=== PATIENT | male | born 1980 ===

== ENCOUNTER 2022-12-06 13:48 | Emergency (ER) | payer OTHER, SELFPAY ==
--- NOTE | ~2022-12-06 | XR_ITS ---
EXAMINATION: XR HAND, LEFT CLINICAL INFORMATION: Laceration third digit. COMPARISON: None available. TECHNIQUE: PA, lateral, and oblique views of the left hand. FINDINGS: There is a slight laceration along the radial aspect of distal phalanx third digit. No underlying bony or joint abnormality seen. Rest of the digits and left hand is unremarkable. XR/XR hand LT 2V IMPRESSION: Soft tissue laceration without fracture distal phalanx third digit. No bony abnormality or dislocation seen.
[2022-12-06 13:51] VITALS: BP 123/87; PULSE 92; RESP 18; TEMP 36.6; O2SAT 95; BMI 34.5
--- NOTE | 2022-12-06 13:51 | ED_ITS ---
HPI - Wound/Laceration General Chief Complaint: Wound/Laceration Stated Complaint: l middle finger laceration Time Seen by Provider: 12/06/22 14:33 Source: patient Mode of arrival: ambulatory Limitations: no limitations History of Present Illness HPI narrative: Patient is a 42-year-old right-hand dominant male with history of T2 dm presenting to the emergency department with laceration to left 3rd finger prior to arrival. States that he was chopping onions with a kitchen knife and accidentally cut his finger. He is unsure of his most recent tetanus vaccination. He denies any numbness or tingling to his finger. Onset (ago): hour(s) Extremity Location: left: hand Place: home Patient tetanus UTD: No Context: accidental Associated symptoms: pain Treatments prior to arrival: bandage Related Data Allergies Allergy/AdvReac Type Severity Reaction Status Date / Time No Known Allergies Allergy Verified 12/06/22 13:58 Review of Systems 2 Review of Systems: As per HPI Yes all other systems are reviewed and are negative Constitutional: Constitutional: Reports as per HPI [facility] Social History Social History Advance Directives: No Advance Directives Information Provided: No Physical Exam 2 Vital Signs: Vital Signs: Last Vital Signs Temp 97.8 F 12/06/22 13:51 Pulse 92 12/06/22 13:51 Resp 18 12/06/22 13:51 BP 123/87 12/06/22 13:51 Pulse Ox 95 12/06/22 13:51 O2 Del Method Room Air 12/06/22 13:51 BMI result Body Mass Index 34.5 Vital signs have been reviewed and appear to be correct. Blood pressure normal. Heart rate normal. Respiratory rate normal. Temperature normal. Oxygen saturation normal. Const: General: cooperative, healthy appearing and no acute distress O rientation/consciousness: oriented to person, oriented to place, oriented to time and patient oriented x3 Limitations: no limitations HEENT: Head: Yes normocephalic and Yes atraumatic Ears: external ears normal General nose exam: Normal external nose present Face and sinus: Yes face symmetric Mouth: oropharynx normal and moist mucous membranes Throat: Yes uvula midline Eyes: Pupils: Equal, round and reactive pupils present Neck: Neck: Yes normal visual inspection and Yes supple Resp: Effort & Inspection: normal respiratory effort and able to speak in complete sentences Auscultation: clear to auscultation bilaterally Cardio: Rate: regular rate Rhythm: regular rhythm Heart sounds: S1 normal heart sound present and S2 normal heart sound present GI: Palpation (GI): Soft to palpation and nontender Auscultation: n ormoactive bowel sounds : General: Yes no CVA tenderness Back/Spine/Pelvis: Back: no CVA tenderness Skin: General skin exam: elasticity normal and turgor normal Neuro: General: oriented to person, oriented to place, oriented to time, patient oriented x3, moves all extremities, no focal motor deficits and CN's II- XI intact bilaterally Cranial nerves: Yes Equal, round and reactive pupils present Cognition (Neuro): normal cognition Extrem: General: Yes full ROM, Yes no pedal edema and Yes no calf tenderness Hand/finger images: 1. laceration through edge of nail, wrapping around radial side of finger onto palmar surface 2. site of injury Psych: Mental Status: mental status grossly normal Affect: normal affect Thought process: Normal thought process present Course Course Course Narrative: This is a rapid medical exam. Deferred additional HPI, ROS, PE to primary provider. 42 yo with history of DM, right hand dominant male here with complaints of laceration to 3rd finger left hand from a knife which occurred while chopping onions. Tetanus shot UTD Lac to left hand 3rd digit along medial aspect to the nailbed. Will obtain x-ray, will need wound repair VSS Medications Administered Discontinued Medications Generic Name Dose Route Start Last Admin Trade Name Freq PRN Reason Stop Dose Admin Diphtheria/Tetanus/Acell Pertussis 0.5 ml 12/06/22 15:04 12/06/22 15:17 Diphth,Pertus(Acell),Tet Adult 0.5 Ml Syringe IM 12/06/22 15:05 0.5 ml .ONCE ONE Administration Lidocaine HCl 10 ml 12/06/22 15:04 12/06/22 16:24 Lidocaine Hcl 1 % Mpf 5 Ml Vial INFILTRATI 12/06/22 15:05 10 ml ONCE ONE Administration Medical Decision Making Medical Decision Making [facility] Narrative: Patient is a 42-year-old right-hand dominant male with history of T2DM presenting to the emergency department with laceration to left 3rd finger prior to arrival. On exam patient is awake, A+Ox3, VS WNL, afebrile, normal neurological exam without focal deficits, physical exam findings as above. Given reported symptoms and physical exam findings, initial differential includes laceration, closed nail bed injury, fracture. X-ray notable for no acute fracture. My interpretation is in agreement with the radiologist's interpretation. Tdap updated at today's visit. Hand soaked in Betadine and saline and cleansed extensively. Laceration repaired as per procedure note with 1 suture through nail. Instructed patient to have sutures removed in 10-14 days. Instructed patient to keep dressing in place and dry for the next 24 hours, then change dressing daily and assess for signs of infection and return if this occurs. All return precautions discussed at bedside. Patient verbalized understanding of and agreement with plan. Differential Diagnosis Differential Diagnoses: The differential diagnosis associated with the presentation includes As per MDM. Independent Interpretation I performed an independent interpretation of an: Plain X-Ray Interpretation: No fracture bony abnormality to left 3rd finger Radiology Impression Discussion of test interpretation with radiology: I have reviewed the radiologist's reading. Radiologist Impression: XR/XR hand LT 2V IMPRESSION: Soft tissue laceration without fracture distal phalanx third digit. No bony abnormality or dislocation seen. External Record Review External record reviewed: Inpatient record, Office record and Outpatient record Prescription Management I considered prescription management with: Pain Medication Procedures Laceration Laceration 1: Site: hand Side (If applicable): left Size (cm): 2 Description: linear Depth: simple, single layer Local Anesthetic: lidocaine 1% (digital block) Amount of anesthesia used (mL): 8 Pre-repair: wound explored, irrigated extensively and deep structures intact Skin layer closed with: nylon Size (cm): 5-0 Number of sutures: 6 Discharge Plan Discharge Clinical Impression: Laceration of finger of left hand with damage to nail Qualifiers: Encounter type: initial encounter Finger: middle finger Foreign body presence: without foreign body Qualified Code(s): S61.313A - Laceration without foreign body of left middle finger with damage to nail, initial encounter Patient Disposition: Home, Self-Care Instructions: Care For Your Stitches (DC), Finger Laceration (ED) Additional Instructions: You have been evaluated in the emergency department today for a laceration to your finger. Your laceration was repaired in the emergency department with sutures. Please keep the area surrounding the laceration clean and dry and keep dressing in place for the next 24 hours. After that please change the dressing and assess the wound daily for signs of infection. Do not submerge your hand in water until fully healed. (No dishes, swimming, hot tubs) Avoid any outdoor water (lakes, streams, etc). Keeping your hand elevated at rest will help to decrease pain and swelling. You can take 650 mg Tylenol or 600 mg ibuprofen every 6 hours as needed for pain. If necessary, you can alternate these medications every 3 hours, for example take ibuprofen at noon, then Tylenol at 3, then ibuprofen at 6, etc. You should have the sutures removed in 10-14 days. If you develop fever, redness, swelling at the site of your laceration, redness streaking up your hand, or thick yellow drainage please come back to the ER for a wound check. Stand Alone Forms: Work/School Release
--- OUTSIDE RECORDS SUMMARY | 2022-12-06 14:44 | XMS_ITS | Continuity of Care Document ---
Author Name Unknown Organization [facility] Address [address] [place] [address]- Care Team Providers Care Salvage Worker Name Role Phone Samantha WREN, Sameera Campoverde Primary Care Physici an Encounter [facility] [place](s): 08/07/22 - 09/06/22 [facility]/[place] [address]- Attending Physician: Tayla Raza Admitting Physician: AdmtrTayla Referring Physician: AdmtrTayla Allergies, Adverse Reactions, Alerts No Known Allergies Immunizations Given and Recorded Vaccine Date Status Refusal Reason tetanus/diphtheria/pertussis, acel(Tdap) 12/26/20 Given tetanus-diphtheria toxoids (Td) 1 03/18/11 Given influenza virus vaccine, inactivated 2 03/18/11 Gi katelyn Twinrix Preservative-Free (oldterm) 01/30/09 Given 1Admin Note: VIS given 2Admin Note: VIS given Medications Alcohol Pads See Instructions, # 100 each, Refills 3, Tot. Refills 3, Maintenance, T2DM No insulin (E11.9) Use as directed once daily, 08/07/22 15:49:00 EDT, Compound, 174.5, cm, 08/07/22 15:15:00 EDT, Height, 104.54, kg, 08/07/22 15:15:00 EDT, Dry Weight Start Date: 08/07/22 Status: Ordered atorvastatin 20 mg oral tablet 1 tablet = 20 mg, By Mouth, Daily, dose increase, # 90 tablet, 3 Refills, Maintenance, 08/29/22 17:43:00 EDT, Tablet, [facility], Partial fill upon patient request if the prescription is for a schedule II opioid drug., 174.5, cm, 0... Start Date: 08/29/22 Status: Ordered cetirizine 10 mg oral tablet 1 tablet = 10 mg, By Mouth, Daily, PRN allergies, # 90 tablet, 3 Refills, Maintenance, 08/07/22 15:42:00 EDT, Tablet, [facility], Partial fill upon patient request if the prescription is for a schedule II opioid drug., 174.5, cm, 0... Start Date: 08/07/22 Status: Ordered famotidine 40 mg oral tablet 1 tablet = 40 mg, By Mouth, Daily at bedtime, PRN Dyspepsia, citizen [place], # 90 tablet, 1 Refills, Maintenance, 08/07/22 15:40:00 EDT, [facility], Partial fill upon patient request if the prescription is for a schedule II opioid drug.,... Start Date: 08/07/22 Status: Ordered Freestyle Lite Lancets See Instructions, # 100 each, Refills 3, Tot. Refills 3, Maintenance, use as directed for Type 2 Diabetes Mellitus, E11.9, testing once daily, 08/07/22 15:49:00 EDT, Compound, 174.5, cm, 08/07/22 15:15:00 EDT, Height, 104.54, kg, 08/07/22 15:15:00 ED... Start Date: 08/07/22 Stop Date: 12/05/22 Status: Ordered Freestyle Lite Monitor See Instructions, # 1 each, Maintenance, Type 2 DM (E11.9), 08/06/21 9:11:00 EDT, Supply, 174.5, cm, 08/01/21 9:37:00 EDT, Height Start Date: 08/06/21 Status: Ordered Freestyle Lite Test Strips See Instructions, # 100 each, Refills 3, Tot. Refills 3, Maintenance, use as directed for Type 2 Diabetes Mellitus, E11.9, testing once daily, 08/07/22 15:49:00 EDT, Compound, 174.5, cm, 08/07/22 15:15:00 EDT, Height, 104.54, kg, 08/07/22 15:15:00 ED... Start Date: 08/07/22 Stop Date: 12/05/22 Status: Ordered metFORMIN 500 mg oral tablet 1 tablet = 500 mg, By Mouth, Daily, with evening meal for type 2 diabetes, # 90 tablet, 1 Refills, Maintenance, 04/14/22 14:10:00 EST, Tablet, [facility], Partial fill upon patient request if the prescription is for a schedule II... Start Date: 04/14/22 Status: Ordered sildenafil 50 mg oral tablet 1 tablet = 50 mg, By Mouth, Daily, 1 hour before sexual activity citizen of [place], # 10 tablet, 3 Refills, Maintenance, 08/07/22 15:57:00 EDT, Tablet, [facility], Partial fill upon patientrequest if the prescription is for a schedule II o... Start Date: 08/07/22 Status: Ordered Problem List Condition Confirmation Course Effective Dates Status Health St atus Informant Binge eating disorder Confirmed Active Central obesity Confirmed Active Disorder of right rotator cuff Confirmed Active History of vertigo 1 Confirmed Active Hyperlipemia Confirmed Active Obese class I Confirmed Active Panic disorder without agoraphobia Confirmed Active Traumatic partial tear of right biceps tendon Confirmed Active Steatosis of liver Confirmed Active Type 2 diabetes mellitus Confirmed Active 1work up in-patient feb 2014, dx: TIA vs complex migraine. Social History Social History Type Response Smoking Status Cigars or pipes but not daily within last 30 days entered on: 07/03/21 Sex Patient Care team information Care Team Personnel Name: Samantha WREN, Sameera Campoverde Position: [facility] PCO Associate Professional Member Role: PCP Address: Address: [address] [place] [address]- Care Team Related Persons Name: ILIANA ECKERT Address: home [place]KNOWN [id number]
--- OUTSIDE RECORDS SUMMARY | 2022-12-06 14:44 | XMS_ITS | Continuity of Care Document ---
Author Name Unknown Organization [facility] Address [address] [place] [address]- Care Team Providers Care Decal Maker Name Role Phone Samantha WREN, Sameera Campoverde Primary Care Physici an [place] [facility] [facility] [place] - 09/28/22 [facility]/[place] [address]- [place] Allergies, Adverse Reactions, Alerts No Known Allergies [...] 3 Refills, Maintenance, 08/29/22 17:43:00 EDT, Tablet, [facility], Partial fill upon patient request if the prescription is for a schedule II opioid drug., 174.5, cm, 0... Start Date: 08/29/22 Status: Ordered cetirizine 10 mg oral tablet 1 tablet = 10 mg, By Mouth, Daily, PRN allergies, # 90 tablet, 3 Refills, Maintenance, 08/07/22 15:42:00 EDT, Tablet, [facility], Partial fill upon patient request if the prescription is for a schedule II opioid drug., 174.5, cm, 0... Start Date: 08/07/22 Status: Ordered famotidine 40 mg oral tablet 1 tablet = 40 mg, By Mouth, Daily at bedtime, PRN Dyspepsia, iraqi, # 90 tablet, 1 Refills, Maintenance, 08/07/22 15:40:00 EDT, [facility], Partial fill upon patient request if [...] 1 Refills, Maintenance, 04/14/22 14:10:00 EST, Tablet, [facility], Partial fill upon patient request if the prescription is for a schedule II... Start Date: 04/14/22 Status: Ordered sildenafil 50 mg oral tablet 1 tablet = 50 mg, By Mouth, Daily, 1 hour before sexual activity iraqi, # 10 tablet, 3 Refills, Maintenance, 08/07/22 15:57:00 EDT, Tablet, [facility], Partial fill upon patientrequest if the prescription [...] Personnel Name: Samantha WREN, Sameera Campoverde Position: [facility] PCO Associate Professional Member Role: PCP Address: Address: [address] [place] [id number]- Care Team Related Persons Name: ILIANA ECKERT Address: home [place]KNOWN [id number]
--- OUTSIDE RECORDS SUMMARY | 2022-12-06 14:44 | XMS_ITS | Continuity of Care Document ---
Author Name Unknown Organization [facility] Address [address] [place] [address]- Care Team Providers Care Chart Writer Name Role Phone Samantha WREN, Sameera Campoverde Primary Care Physici an [place] [facility] [place] 03/18/22 - 04/17/22 [facility]/[place] [address]- [place] Allergies, Adverse Reactions, Alerts No Known [...] insulin (E11.9) Use as directed once daily, 08/06/21 9:11:00 EDT, Compound, 174.5, cm, 08/01/21 9:37:00 EDT, Height Start Date: 08/06/21 Status: Ordered atorvastatin 10 mg oral tablet 1 tablet = 10 mg, By Mouth, Daily, # 90 tablet, 0 Refills, Maintenance, 04/11/22 15:41:00 EST, [facility], Partial fill upon patient request if the prescription is for a schedule II opioid drug., 174.5, cm, 03/06/22 11:05:00 EST, H... Start Date: 04/11/22 Status: Ordered cetirizine 10 mg oral tablet 1 tablet = 10 mg, By Mouth, Daily, PRN allergies, # 30 tablet, 11 Refills, Maintenance, 12/26/20 16:01:00 EDT, Tablet, [facility], Partial fill upon patient request if the prescription is for a schedule II opioid drug., 174.5, cm,... Start Date: 12/26/20 Status: Ordered dextromethorphan-guaifenesin 10 mg-100 mg/10 mL oral liquid 5 mL, By Mouth, Every 4 hours, PRN as needed for cough, not to exceed 6 doses/day, # 30 mL, 0 Refills, Maintenance, 03/17/22 16:32:00 EST, Liquid, [facility], Partial fill upon patient request if the prescription is for a schedule... Start Date: 03/17/22 Status: Ordered escitalopram 10 mg oral tablet 1 tablet = 10 mg, By Mouth, Daily, take 1/2 pill for 2 weeks, then increase to one pill daily, # 30tablet, 5 Refills, Maintenance, 10/10/21 10:43:00 EDT, Tablet, [facility], Partial fill upon patient request if the prescription is... Start Date: 10/10/21 Status: Ordered famotidine 40 mg oral tablet 1 tablet = 40 mg, By Mouth, 2 times a day, PRN Dyspepsia, greenlandic, # 20 tablet, 1 Refills, Maintenance, 02/22/20 11:25:00 EST, [facility], Partial fill upon patient request if theprescription is for a schedule II opioid drug., 174... Start Date: 02/22/20 Status: Ordered famotidine 40 mg oral tablet 1 tablet = 40 mg, By Mouth, Daily at bedtime, PRN Dyspepsia, greenlandic, # 20 tablet, 1 Refills, Maintenance, 03/17/22 16:27:00 EST, [facility], Partial fill upon patient request if the prescription is for a schedule II opioid drug.,... Start Date: 03/17/22 Status: Ordered Freestyle Lite Lancets See Instructions, # 100 each, Refills 3, Tot. Refills 3, Maintenance, use as directed for Type 2 Diabetes Mellitus, E11.9, testing once daily, 08/06/21 9:11:00 EDT, Compound, 174.5, cm, 08/01/21 9:37:00 EDT, Height Start Date: 08/06/21 Stop Date: 12/04/21 Status: Ordered Freestyle Lite Monitor See Instructions, # 1 each, Maintenance, Type 2 DM (E11.9), 08/06/21 9:11:00 EDT, Supply, 174.5, cm, 08/01/21 9:37:00 EDT, Height Start Date: 08/06/21 Status: Ordered Freestyle Lite Test Strips See Instructions, # 100 each, Refills 3, Tot. Refills 3, Maintenance, use as directed for Type 2 Diabetes Mellitus, E11.9, testing once daily, 08/06/21 9:11:00 EDT, Compound, 174.5, cm, 08/01/21 9:37:00 EDT, Height Start Date: 08/06/21 Stop Date: 12/04/21 Status: Ordered hydrOXYzine hydrochloride 10 mg oral tablet See Instructions, PRN for anxiety, 1-2 tablet By Mouth 4 times a day PRN anxiety/panic attack., # 60 tablet, 1 Refills, Maintenance, 10/10/21 11:08:00 EDT, Tablet, [facility], Partial fill upon patient request if the prescription i... Start Date: 10/10/21 Status: Ordered ipratropium nasal 21 mcg/inh spray 2 sprays, Nares, Both, 2 times a day, PRN Congestion, # 1 each, 0 Refills, Maintenance, 03/17/22 16:25:00 EST, [facility], Partial fill upon patient request if the prescription isfor a schedule II opioid drug., 2 sprays Nares, Bot... Start Date: 03/17/22 Status: Ordered Lubricant Eye Drops ophthalmic solution 1 drops, Eyes, Both, 2 times a day, PRN for dry eyes, # 30 mL, 11 Refills, Maintenance, 12/26/20 16:07:00 EDT, Solution, [facility], Partial fill upon patient request if the prescription is for a schedule II opioid drug., 1 drops E... Start Date: 12/26/20 Status: Ordered metFORMIN 500 mg oral tablet 1 tablet = 500 mg, By Mouth, Daily, with evening meal for type 2 diabetes, # 90 tablet, 1 Refills, Maintenance, 04/14/22 14:10:00 EST, Tablet, [facility], Partial fill upon patient request if the prescription is for a schedule II... Start Date: 04/14/22 Status: Ordered Problem List Condition Confirmation Course [...] Personnel Name: Samantha WREN, Sameera Campoverde Position: [facility] PCO Associate Professional Member Role: PCP Address: Address: [address] [place] [address] Care Team Related Persons Name: ILIANA ECKERT Address: home [place] [phone]
--- OUTSIDE RECORDS SUMMARY | 2022-12-06 14:44 | XMS_ITS | Continuity of Care Document ---
Author Name Unknown Organization [facility] Address [address] [place], [place] [id number]- Care Team Providers Care Biochemist Name Role Phone Samantha WREN, Sameera Campoverde Primary Care Physici an Encounter [facility] [place] Date(s): 10/01/21 - 10/31/21 [facility]/[place] [address]- [place] Allergies, Adverse Reactions, Alerts No Known [...] EDT, Height Start Date: 08/06/21 Status: Ordered cetirizine 10 mg oral tablet 1 tablet = 10 mg, By Mouth, Daily, PRN allergies, # 30 tablet, 11 Refills, Maintenance, 12/26/20 16:01:00 EDT, Tablet, [facility], Partial fill upon patient request if the prescription is for a schedule II opioid drug., 174.5, cm,... Start Date: 12/26/20 Status: Ordered escitalopram 10 mg oral tablet 1 tablet = 10 mg, By Mouth, Daily, take 1/2 pill for 2 weeks, then increase to one pill daily, # 30tablet, 5 Refills, Maintenance, 10/10/21 10:43:00 EDT, Tablet, [facility], Partial fill upon patient request if the prescription is... Start Date: 10/10/21 Status: Ordered famotidine 40 mg oral tablet 1 tablet = 40 mg, By Mouth, 2 times a day, PRN Dyspepsia, arabic, # 20 tablet, 1 Refills, Maintenance, 02/22/20 11:25:00 EST, [facility], Partial fill upon patient request if theprescription is for a schedule II opioid drug., 174... Start Date: 02/22/20 Status: Ordered Freestyle Lite Lancets See Instructions, [...] 1 Refills, Maintenance, 10/10/21 11:08:00 EDT, Tablet, [facility], Partial fill upon patient request if the prescription i... Start Date: 10/10/21 Status: Ordered Lubricant Eye Drops ophthalmic solution 1 drops, Eyes, Both, 2 times a day, PRN for dry eyes, # 30 mL, 11 Refills, Maintenance, 12/26/20 16:07:00 EDT, Solution, [facility], Partial fill upon patient request if the prescription is for a schedule II opioid drug., 1 drops E... Start Date: 12/26/20 Status: Ordered metFORMIN 500 mg oral tablet 1 tablet = 500 mg, By Mouth, Daily, with evening meal for type 2 diabetes, # 90 tablet, 1 Refills, Maintenance, 10/29/21 13:27:00 EDT, Tablet, [facility], Partial fill upon patient request if the prescription is for a schedule II... Start Date: 10/29/21 Status: Ordered Problem List Condition Effective Dates Status Health Status Inform ant Binge eating disorder(Confirmed) Active Central obesity(Confirmed) Active Disorder of right rotator cuff(Confirmed) Active History of vertigo(Confirmed) 1 Active Hyperlipemia(Confirmed) Active Obese class I(Confirmed) Active Panic disorder without agoraphobia(Confirmed) Active Traumatic partial tear of ri ght biceps tendon(Confirmed) Active Steatosis of liver(Confirmed) Active Type 2 diabetes mellitus(Confirmed) Active 1work up in-patient feb 2014, dx: TIA vs complex migraine. Social History Social History Type Response Smoking Status Cigars or pipes but not daily within last 30 days entered on: 07/03/21 Sex Care Team Personnel Name: Samantha WREN, Sameera Campoverde Address: [address] [place] [address]
--- OUTSIDE RECORDS SUMMARY | 2022-12-06 14:44 | XMS_ITS | Continuity of Care Document ---
Author Name Unknown Organization [facility] Address [address] [place], [place] [id number]- Care Team Providers Care Injection Operator Name Role Phone Samantha WREN, Sameera Campoverde Primary Care Physici an Encounter [facility] Date(s): 11/07/21 - 12/07/21 [facility] [address]- [place] Allergies, Adverse Reactions, Alerts No Known [...] 11 Refills, Maintenance, 12/26/20 16:01:00 EDT, Tablet, [facility], Partial fill upon patient request if the prescription is for a schedule II opioid drug., 174.5, cm,... Start Date: 12/26/20 Status: Ordered escitalopram 10 mg oral tablet 1 tablet = 10 mg, By Mouth, Daily, take 1/2 pill for 2 weeks, then increase to one pill daily, # 30tablet, 5 Refills, Maintenance, 10/10/21 10:43:00 EDT, Tablet, [facility], Partial fill upon patient request if the prescription is... Start Date: 10/10/21 Status: Ordered famotidine 40 mg oral tablet 1 tablet = 40 mg, By Mouth, 2 times a day, PRN Dyspepsia, polish, # 20 tablet, 1 Refills, Maintenance, 02/22/20 11:25:00 EST, [facility], Partial fill upon patient request if theprescription [...] 1 Refills, Maintenance, 10/10/21 11:08:00 EDT, Tablet, [facility], Partial fill upon patient request if the prescription i... Start Date: 10/10/21 Status: Ordered Lubricant Eye Drops ophthalmic solution 1 drops, Eyes, Both, 2 times a day, PRN for dry eyes, # 30 mL, 11 Refills, Maintenance, 12/26/20 16:07:00 EDT, Solution, [facility], Partial fill upon patient request if the prescription is for a schedule II opioid drug., 1 drops E... Start Date: 12/26/20 Status: Ordered metFORMIN 500 mg oral tablet 1 tablet = 500 mg, By Mouth, Daily, with evening meal for type 2 diabetes, # 90 tablet, 1 Refills, Maintenance, 10/29/21 13:27:00 EDT, Tablet, [facility], Partial fill upon patient request if the prescription is for a schedule II... Start Date: 10/29/21 Status: Ordered Problem List Condition Confirmation Course [...] on: 07/03/21 Sex Patient Care team information Personnel Name: Samantha WREN, Sameera Campoverde Address: Address: [address] [place] [address]
--- OUTSIDE RECORDS SUMMARY | 2022-12-06 14:44 | XMS_ITS | Continuity of Care Document ---
Author Name Unknown Organization [facility] Address [address] [place] [address]- Care Team Providers Care Rolling Machine Operator Automatic Name Role Phone Codi WREN, Misa Cleary Primary Care Physician Encounter [facility] Date(s): 03/24/19 - 04/03/19 [facility] [place] [address] [place] [address]- [facility] Attending Physician: Tayla Raza Admitting Physician: Tayla Raza Referring Physician: Tayla Raza Allergies, Adverse Reactions, Alerts No Known Medication Allergies Substance Reaction Severity Status NKA Active Immunizations Given and Recorded Vaccine Date Status Refusal Reason tetanus-diphtheria toxoids (Td) 1 03/18/11 Given influenza virus vaccine, inactivated 2 03/18/11 Gi katelyn 1Admin Note: VIS given 2Admin Note: VIS given Problem List Condition Effective Dates Status Health Status Inform ant Binge eating disorder(Confirmed) Active Central obesity(Confirmed) Active Disorder of right rotator cuff(Confirmed) Active History of vertigo(Confirmed) 1 Active Traumatic partial tear of ri ght biceps tendon(Confirmed) Active Steatosis of liver(Confirmed) Active 1work up in-patient feb 2014, dx: TIA vs complex migraine. Social History Social History Type Response Smoking Status Former smoker; Tobac co user in household: No entered on: 09/03/17 Sex
--- OUTSIDE RECORDS SUMMARY | 2022-12-06 14:44 | XMS_ITS | Continuity of Care Document ---
Author Name Unknown Organization [facility] Address [address] [place] [address]- Care Team Providers Care Optician Manager Name Role Phone Misa Kincaid NP Primary Care Physician Encounter [facility] Date(s): 04/11/20 - 05/11/20 [facility]/[address] [address]- Attending Physician: Tayla Raza Admitting Physician: AdmtrTayla Referring Physician: Admtr, ArJaja Allergies, Adverse Reactions, Alerts No Known Medication Allergies Substance Reaction Severity Status NKA Active Immunizations Given and Recorded Vaccine Date Status Refusal Reason tetanus-diphtheria toxoids (Td) 1 03/18/11 Given influenza virus vaccine, inactivated 2 03/18/11 Gi katelyn 1Admin Note: VIS given 2Admin Note: VIS given Medications diclofenac 1% topical gel 1 application, Topically, 4 times a day, PRN Pain , Moderate, # 100 Gm, 0 Refills, Maintenance, 12/05/19 11:20:00 EDT, Gel, [facility], 174.5, cm, 12/05/19 10:29:00 EDT, Height Start Date: 12/05/19 Status: Ordered famotidine 40 mg oral tablet 1 tablet = 40 mg, By Mouth, 2 times a day, PRN Dyspepsia, sinhala, # 20 tablet, 1 Refills, Maintenance, 02/22/20 11:25:00 EST, [facility], Partial fill upon patient request if theprescription is for a schedule II opioid drug., 174... Start Date: 02/22/20 Status: Ordered ibuprofen 400 mg oral tablet 400 mg, 1, tablet, By Mouth, Every 4 hours, PRN, # 60 tablet, Refills 0, Tot. Refills 0, Maintenance, for pain, 12/02/19 11:42:00 EDT, Route to Pharmacy Electronically, [facility], 174.5, cm, 03/24/19 16:27:00 EST, Height Start Date: 12/02/19 Status: Ordered lidocaine 4% topical solution See Instructions, as needed for pain in L shoulder, # 1 each, 0 Refills, Maintenance, 12/02/19 11:43:00 EDT, [facility], as needed for pain in L shoulder, 174.5, cm, 03/24/19 16:27:00 EST, Height Start Date: 12/02/19 Status: Ordered Problem List Condition Effective Dates [...]
--- OUTSIDE RECORDS SUMMARY | 2022-12-06 14:45 | XMS_ITS | Continuity of Care Document ---
Author Name Unknown Organization [facility] Address Unknown Care Team Providers Care Provider Network Analyst Name Role Phone Samantha WREN, Sameera Campoverde Primary Care Physici an Encounter [facility] [id number] Date(s): 01/21/21 - 02/20/21 [facility] Allergies, Adverse Reactions, Alerts No Known Medication Allergies Substance Reaction Severity Status NKA Active Immunizations Given and Recorded Vaccine Date Status Refusal Reason tetanus/diphtheria/pertussis, acel(Tdap) 12/26/20 Given tetanus-diphtheria toxoids (Td) 1 03/18/11 Given influenza virus vaccine, inactivated 2 03/18/11 Gi katelyn 1Admin Note: VIS given 2Admin Note: VIS given Medications cetirizine 10 mg oral tablet 1 tablet = 10 mg, By Mouth, Daily, PRN allergies, # 30 tablet, 11 Refills, Maintenance, 12/26/20 16:01:00 EDT, Tablet, [facility], Partial fill upon patient request if the prescription is for a schedule II opioid drug., 174.5, cm,... Start Date: 12/26/20 Status: Ordered famotidine 40 mg oral tablet 1 tablet = 40 mg, By Mouth, 2 times a day, PRN Dyspepsia, tamazight, # 20 tablet, 1 Refills, Maintenance, 02/22/20 11:25:00 EST, [facility], Partial fill upon patient request if theprescription is for a schedule II opioid drug., 174... Start Date: 02/22/20 Status: Ordered Lubricant Eye Drops ophthalmic solution 1 drops, Eyes, Both, 2 times a day, PRN for dry eyes, # 30 mL, 11 Refills, Maintenance, 12/26/20 16:07:00 EDT, Solution, [facility], Partial fill upon patient request if the prescription is for a schedule II opioid drug., 1 drops E... Start Date: 12/26/20 Status: Ordered Problem List Condition Effective Dates Status Health Status Inform ant Binge eating disorder(Confirmed) Active Central obesity(Confirmed) Active Disorder of right rotator cuff(Confirmed) Active History of vertigo(Confirmed) 1 Active Obese class II(Confirmed) Active Traumatic partial tear of ri ght biceps tendon(Confirmed) Active Steatosis of liver(Confirmed) Active 1work up in-patient feb 2014, dx: TIA vs complex migraine. Social History Social History Type Response Smoking Status Never (less than 100 in lifetime) entered on: 12/26/20 Sex
--- OUTSIDE RECORDS SUMMARY | 2022-12-06 14:45 | XMS_ITS | Continuity of Care Document ---
Author Name Unknown Organization [facility] Address [address] [place] [address]- Care Team Providers Care Corporate Security Manager Name Role Phone Misa Kincaid NP Primary Care Physician Encounter [facility] Date(s): 02/22/20 - 03/23/20 [facility]/[address] [address]- Attending Physician: Tayla Raza Admitting Physician: AdmTayla argueta Referring Physician: Admtr, ArJaja Allergies, Adverse Reactions, [...] 0 Refills, Maintenance, 12/05/19 11:20:00 EDT, Gel, [facility], 174.5, cm, 12/05/19 10:29:00 EDT, Height Start Date: 12/05/19 Status: Ordered famotidine 40 mg oral tablet 1 tablet = 40 mg, By Mouth, 2 times a day, PRN Dyspepsia, chinese, # 20 tablet, 1 Refills, Maintenance, 02/22/20 11:25:00 EST, [facility], Partial fill upon patient request if theprescription is for a schedule II opioid drug., 174... Start Date: 02/22/20 Status: Ordered ibuprofen 400 mg oral tablet 400 mg, 1, tablet, By Mouth, Every 4 hours, PRN, # 60 tablet, Refills 0, Tot. Refills 0, Maintenance, for pain, 12/02/19 11:42:00 EDT, Route to Pharmacy Electronically, [facility], 174.5, cm, 03/24/19 16:27:00 EST, Height Start Date: 12/02/19 Status: Ordered lidocaine 4% topical solution See Instructions, as needed for pain in L shoulder, # 1 each, 0 Refills, Maintenance, 12/02/19 11:43:00 EDT, [facility], as needed for pain in L shoulder, [...]
--- OUTSIDE RECORDS SUMMARY | 2022-12-06 14:45 | XMS_ITS | Continuity of Care Document ---
Author Name Unknown Organization [facility] Address [address] [place] [id number]- Care Team Providers Care Conveyor Feeder Offbearer Name Role Phone Samantha WREN, Sameera Campoverde Primary Care Physici an Encounter [facility] Date(s): 10/02/21 - 11/01/21 [facility] [address]- [place] Allergies, Adverse Reactions, Alerts No Known [...] 11 Refills, Maintenance, 12/26/20 16:01:00 EDT, Tablet, [facility], Partial fill upon patient request if the prescription is for a schedule II opioid drug., 174.5, cm,... Start Date: 12/26/20 Status: Ordered escitalopram 10 mg oral tablet 1 tablet = 10 mg, By Mouth, Daily, take 1/2 pill for 2 weeks, then increase to one pill daily, # 30tablet, 5 Refills, Maintenance, 10/10/21 10:43:00 EDT, Tablet, [facility], Partial fill upon patient request if the prescription is... Start Date: 10/10/21 Status: Ordered famotidine 40 mg oral tablet 1 tablet = 40 mg, By Mouth, 2 times a day, PRN Dyspepsia, albanian, # 20 tablet, 1 Refills, Maintenance, 02/22/20 11:25:00 EST, [facility], Partial fill upon patient request if theprescription [...] 1 Refills, Maintenance, 10/10/21 11:08:00 EDT, Tablet, [facility], Partial fill upon patient request if the prescription i... Start Date: 10/10/21 Status: Ordered Lubricant Eye Drops ophthalmic solution 1 drops, Eyes, Both, 2 times a day, PRN for dry eyes, # 30 mL, 11 Refills, Maintenance, 12/26/20 16:07:00 EDT, Solution, [facility], Partial fill upon patient request if the prescription is for a schedule II opioid drug., 1 drops E... Start Date: 12/26/20 Status: Ordered metFORMIN 500 mg oral tablet 1 tablet = 500 mg, By Mouth, Daily, with evening meal for type 2 diabetes, # 90 tablet, 1 Refills, Maintenance, 10/29/21 13:27:00 EDT, Tablet, [facility], Partial fill upon patient request if the [...] Personnel Name: Samantha WREN, Sameera Campoverde Address: [address] [place] [address]
--- OUTSIDE RECORDS SUMMARY | 2022-12-06 14:45 | XMS_ITS | Continuity of Care Document ---
Author Name Unknown Organization [facility] Address [address] [place], [place] [address]- Care Team Providers Care Hand Reamer Name Role Phone Samantha WREN, Sameera Campoverde Primary Care Physici an Encounter [facility] Date(s): 09/24/21 - 10/24/21 [facility] [address]- [place] Allergies, Adverse Reactions, Alerts No Known [...] 11 Refills, Maintenance, 12/26/20 16:01:00 EDT, Tablet, [facility], Partial fill upon patient request if the prescription is for a schedule II opioid drug., 174.5, cm,... Start Date: 12/26/20 Status: Ordered escitalopram 10 mg oral tablet 1 tablet = 10 mg, By Mouth, Daily, take 1/2 pill for 2 weeks, then increase to one pill daily, # 30tablet, 5 Refills, Maintenance, 10/10/21 10:43:00 EDT, Tablet, [facility], Partial fill upon patient request if the prescription is... Start Date: 10/10/21 Status: Ordered famotidine 40 mg oral tablet 1 tablet = 40 mg, By Mouth, 2 times a day, PRN Dyspepsia, divehi, # 20 tablet, 1 Refills, Maintenance, 02/22/20 11:25:00 EST, [facility], Partial fill upon patient request if [...] 1 Refills, Maintenance, 10/10/21 11:08:00 EDT, Tablet, [facility], Partial fill upon patient request if the prescription i... Start Date: 10/10/21 Status: Ordered Lubricant Eye Drops ophthalmic solution 1 drops, Eyes, Both, 2 times a day, PRN for dry eyes, # 30 mL, 11 Refills, Maintenance, 12/26/20 16:07:00 EDT, Solution, [facility], Partial fill upon patient request if the prescription is for a schedule II opioid drug., 1 drops E... Start Date: 12/26/20 Status: Ordered metFORMIN 500 mg oral tablet 1 tablet = 500 mg, By Mouth, Daily, with evening meal for type 2 diabetes, # 90 tablet, 1 Refills, Maintenance, 08/01/21 10:50:00 EDT, Tablet, [facility], Partial fill upon patient request if the prescription is for a schedule II... Start Date: 08/01/21 Status: Ordered Problem List Condition Effective Dates [...] Personnel Name: Samantha WREN, Sameera Campoverde Address: [address] [place] [address]
--- OUTSIDE RECORDS SUMMARY | 2022-12-06 14:45 | XMS_ITS | Continuity of Care Document ---
Author Name Unknown Organization [facility] Address Unknown Care Team Providers Care General Medical Practitioner Name Role Phone Samantha WREN, Sameera Campoverde Primary Care Physici an [id number] Date(s): 07/09/21 - 08/08/21 [facility] Allergies, Adverse Reactions, Alerts No Known Allergies [...] 11 Refills, Maintenance, 12/26/20 16:01:00 EDT, Tablet, [facility], Partial fill upon patient request if the prescription is for a schedule II opioid drug., 174.5, cm,... Start Date: 12/26/20 Status: Ordered famotidine 40 mg oral tablet 1 tablet = 40 mg, By Mouth, 2 times a day, PRN Dyspepsia, malay, # 20 tablet, 1 Refills, Maintenance, 02/22/20 11:25:00 EST, [facility], Partial fill upon patient request if theprescription [...] attack., # 60 tablet, 1 Refills, Maintenance, 07/03/21 18:00:00 EDT, Tablet, [facility], Partial fill upon patient request if the prescription i... Start Date: 07/03/21 Status: Ordered Lubricant Eye Drops ophthalmic solution 1 drops, Eyes, Both, 2 times a day, PRN for dry eyes, # 30 mL, 11 Refills, Maintenance, 12/26/20 16:07:00 EDT, Solution, [facility], Partial fill upon patient request if the prescription is for a schedule II opioid drug., 1 drops E... Start Date: 12/26/20 Status: Ordered metFORMIN 500 mg oral tablet 1 tablet = 500 mg, By Mouth, Daily, with evening meal for type 2 diabetes, # 90 tablet, 1 Refills, Maintenance, 08/01/21 10:50:00 EDT, Tablet, [facility], Partial fill upon patient request if [...]
--- OUTSIDE RECORDS SUMMARY | 2022-12-06 14:45 | XMS_ITS | Continuity of Care Document ---
Author Name Unknown Organization [facility] Address Unknown Care Team Providers Care Railcar Switchman Name Role Phone Samantha WREN, Sameera Camopverde Primary Care Physici an [id number] Date(s): 01/11/21 - 02/10/21 [facility] Attending Physician: Tayla Raza Admitting Physician: [...] 11 Refills, Maintenance, 12/26/20 16:01:00 EDT, Tablet, [facility], Partial fill upon patient request if the prescription is for a schedule II opioid drug., 174.5, cm,... Start Date: 12/26/20 Status: Ordered famotidine 40 mg oral tablet 1 tablet = 40 mg, By Mouth, 2 times a day, PRN Dyspepsia, trinidadian, # 20 tablet, 1 Refills, Maintenance, 02/22/20 11:25:00 EST, [facility], Partial fill upon patient request if theprescription is for a schedule II opioid drug., 174... Start Date: 02/22/20 Status: Ordered Lubricant Eye Drops ophthalmic solution 1 drops, Eyes, Both, 2 times a day, PRN for dry eyes, # 30 mL, 11 Refills, Maintenance, 12/26/20 16:07:00 EDT, Ursula, [facility], Partial fill upon patient request if [...]
--- OUTSIDE RECORDS SUMMARY | 2022-12-06 14:45 | XMS_ITS | Continuity of Care Document ---
Author Name Unknown Organization [facility] Address [address] [place] [address]- Care Team Providers Care Gluten Settling Tender Name Role Phone Samantha WREN, Sameera Campoverde Primary Care Physici an Encounter [facility] [place] Date(s): 03/17/22 - 04/16/22 [facility]/[place] [address]- [place] Allergies, Adverse Reactions, Alerts No Known [...] tablet, 0 Refills, Maintenance, 04/11/22 15:41:00 EST, [facility], Partial fill upon patient request if the prescription is for a schedule II opioid drug., 174.5, cm, 03/06/22 11:05:00 EST, H... Start Date: 04/11/22 Status: Ordered cetirizine 10 mg oral tablet 1 tablet = 10 mg, By Mouth, Daily, PRN allergies, # 30 tablet, 11 Refills, Maintenance, 12/26/20 16:01:00 EDT, Tablet, [facility], Partial fill upon patient request if the prescription is for a schedule II opioid drug., 174.5, cm,... Start Date: 12/26/20 Status: Ordered dextromethorphan-guaifenesin 10 mg-100 mg/10 mL oral liquid 5 mL, By Mouth, Every 4 hours, PRN as needed for cough, not to exceed 6 doses/day, # 30 mL, 0 Refills, Maintenance, 03/17/22 16:32:00 EST, Liquid, [facility], Partial fill upon patient request if the prescription is for a schedule... Start Date: 03/17/22 Status: Ordered escitalopram 10 mg oral tablet 1 tablet = 10 mg, By Mouth, Daily, take 1/2 pill for 2 weeks, then increase to one pill daily, # 30tablet, 5 Refills, Maintenance, 10/10/21 10:43:00 EDT, Tablet, [facility], Partial fill upon patient request if the prescription is... Start Date: 10/10/21 Status: Ordered famotidine 40 mg oral tablet 1 tablet = 40 mg, By Mouth, 2 times a day, PRN Dyspepsia, khmer, # 20 tablet, 1 Refills, Maintenance, 02/22/20 11:25:00 EST, [facility], Partial fill upon patient request if theprescription is for a schedule II opioid drug., 174... Start Date: 02/22/20 Status: Ordered famotidine 40 mg oral tablet 1 tablet = 40 mg, By Mouth, Daily at bedtime, PRN Dyspepsia, khmer, # 20 tablet, 1 Refills, Maintenance, 03/17/22 16:27:00 EST, [facility], Partial fill upon patient request if [...] 1 Refills, Maintenance, 10/10/21 11:08:00 EDT, Tablet, [facility], Partial fill upon patient request if the prescription i... Start Date: 10/10/21 Status: Ordered ipratropium nasal 21 mcg/inh spray 2 sprays, Nares, Both, 2 times a day, PRN Congestion, # 1 each, 0 Refills, Maintenance, 03/17/22 16:25:00 EST, [facility], Partial fill upon patient request if the prescription isfor a schedule II opioid drug., 2 sprays Nares, Bot... Start Date: 03/17/22 Status: Ordered Lubricant Eye Drops ophthalmic solution 1 drops, Eyes, Both, 2 times a day, PRN for dry eyes, # 30 mL, 11 Refills, Maintenance, 12/26/20 16:07:00 EDT, Solution, [facility], Partial fill upon patient request if the prescription is for a schedule II opioid drug., 1 drops E... Start Date: 12/26/20 Status: Ordered metFORMIN 500 mg oral tablet 1 tablet = 500 mg, By Mouth, Daily, with evening meal for type 2 diabetes, # 90 tablet, 1 Refills, Maintenance, 04/14/22 14:10:00 EST, Tablet, [facility], Partial fill upon patient request if [...] Personnel Name: Samantha WREN, Sameera Campoverde Position: [facility] PCO Associate Professional Member Role: PCP Address: Address: [address] [place] [address] Care Team Related Persons Name: ILIANA ECKERT Address: home UNKNOWN [id number]
--- OUTSIDE RECORDS SUMMARY | 2022-12-06 14:45 | XMS_ITS | Continuity of Care Document ---
Author Name Unknown Organization [facility] Address [address] [place] [address]- Care Team Providers Care Export Packer Name Role Phone Codi WREN, Misa Cleary Primary Care Physician Encounter [facility] Date(s): 01/11/20 - 02/10/20 [facility]/[address] [address]- Attending Physician: Tayla Raza Admitting Physician: Tayla Raza Referring Physician: AdmtrTayla Allergies, Adverse Reactions, Alerts No Known Medication [...] 0 Refills, Maintenance, 12/05/19 11:20:00 EDT, Gel, [facility], 174.5, cm, 12/05/19 10:29:00 EDT, Height Start Date: 12/05/19 Status: Ordered ibuprofen 400 mg oral tablet 400 mg, 1, tablet, By Mouth, Every 4 hours, PRN, # 60 tablet, Refills 0, Tot. Refills 0, Maintenance, for pain, 12/02/19 11:42:00 EDT, Route to Pharmacy Electronically, [facility], 174.5, cm, 03/24/19 16:27:00 EST, Height Start Date: 12/02/19 Status: Ordered lidocaine 4% topical solution See Instructions, as needed for pain in L shoulder, # 1 each, 0 Refills, Maintenance, 12/02/19 11:43:00 EDT, [facility] [place], as needed for pain in L shoulder, [...]
--- OUTSIDE RECORDS SUMMARY | 2022-12-06 14:45 | XMS_ITS | Continuity of Care Document ---
Author Name Unknown Organization [facility] Address [address] [place] [address]- Care Team Providers Care Consulting Practice Director Name Role Phone Samantha WREN, Sameera Campoverde Primary Care Physici an Encounter [facility] [place] Date(s): 08/29/22 - 09/28/22 [facility] [address]- [place] Allergies, Adverse Reactions, Alerts No Known [...] 3 Refills, Maintenance, 08/29/22 17:43:00 EDT, Tablet, [facility], Partial fill upon patient request if the prescription is for a schedule II opioid drug., 174.5, cm, 0... Start Date: 08/29/22 Status: Ordered cetirizine 10 mg oral tablet 1 tablet = 10 mg, By Mouth, Daily, PRN allergies, # 90 tablet, 3 Refills, Maintenance, 08/07/22 15:42:00 EDT, Tablet, [facility], Partial fill upon patient request if the prescription is for a schedule II opioid drug., 174.5, cm, 0... Start Date: 08/07/22 Status: Ordered famotidine 40 mg oral tablet 1 tablet = 40 mg, By Mouth, Daily at bedtime, PRN Dyspepsia, guinean, # 90 tablet, 1 Refills, Maintenance, 08/07/22 15:40:00 EDT, [facility], Partial fill upon patient request if [...] 1 Refills, Maintenance, 04/14/22 14:10:00 EST, Tablet, [facility], Partial fill upon patient request if the prescription is for a schedule II... Start Date: 04/14/22 Status: Ordered sildenafil 50 mg oral tablet 1 tablet = 50 mg, By Mouth, Daily, 1 hour before sexual activity guinean, # 10 tablet, 3 Refills, Maintenance, 08/07/22 15:57:00 EDT, Tablet, [facility], Partial fill upon patientrequest if the [...] Personnel Name: Samantha WREN, Sameera Campoverde Position: [facility] PCO Associate Professional Member Role: PCP Address: Address: [address] [place] [id number]- Care Team Related Persons Name: ILIANA ECKERT Address: home UNKNOWN [id number]
--- OUTSIDE RECORDS SUMMARY | 2022-12-06 14:45 | XMS_ITS | Continuity of Care Document ---
Author Name Unknown Organization [facility] Address Unknown Care Team Providers Care Instructor Product Inspection Name Role Phone Samantha WREN, Sameera Campovrede Primary Care Physici an Encounter [facility] [place] Date(s): 06/03/21 - 07/03/21 [facility] Allergies, Adverse Reactions, Alerts No Known Allergies [...] 11 Refills, Maintenance, 12/26/20 16:01:00 EDT, Tablet, [facility], Partial fill upon patient request if the prescription is for a schedule II opioid drug., 174.5, cm,... Start Date: 12/26/20 Status: Ordered famotidine 40 mg oral tablet 1 tablet = 40 mg, By Mouth, 2 times a day, PRN Dyspepsia, indian, # 20 tablet, 1 Refills, Maintenance, 02/22/20 11:25:00 EST, [facility], Partial fill upon patient request if theprescription is for a schedule II opioid drug., 174... Start Date: 02/22/20 Status: Ordered hydrOXYzine hydrochloride 10 mg oral tablet See Instructions, PRN for anxiety, 1-2 tablet By Mouth 4 times a day PRN anxiety/panic attack., # 60 tablet, 1 Refills, Maintenance, 07/03/21 18:00:00 EDT, Tablet, [facility], Partial fill upon patient request if the prescription i... Start Date: 07/03/21 Status: Ordered Lubricant Eye Drops ophthalmic solution 1 drops, Eyes, Both, 2 times a day, PRN for dry eyes, # 30 mL, 11 Refills, Maintenance, 12/26/20 16:07:00 EDT, Solution, [facility], Partial fill upon patient request if [...]
--- OUTSIDE RECORDS SUMMARY | 2022-12-06 14:45 | XMS_ITS | Continuity of Care Document ---
Author Name Unknown Organization [facility] Address [address] [place] [address]- Care Team Providers Care Service Station Console Operator Name Role Phone Codi WREN, Misa Cleary Primary Care Phys[id number] Date[facility] - 08/19/19 [facility]/[address] [address] [facility] Attending Physician: Tayla Raza Admitting [...]
--- OUTSIDE RECORDS SUMMARY | 2022-12-06 14:45 | XMS_ITS | Continuity of Care Document ---
Author Name Unknown Organization [facility] Address [address] [place] [address]- Care Team Providers Care Pleasure Craft Sailor Name Role Phone Misa Kincaid NP Primary Care Physician Encounter [facility] Date(s): 02/02/20 - 03/03/20 [facility]/[address] [address]- Allergies, Adverse Reactions, Alerts No Known Medication [...] 0 Refills, Maintenance, 12/05/19 11:20:00 EDT, Gel, [facility], 174.5, cm, 12/05/19 10:29:00 EDT, Height Start Date: 12/05/19 Status: Ordered famotidine 40 mg oral tablet 1 tablet = 40 mg, By Mouth, 2 times a day, PRN Dyspepsia, kinyarwanda, # 20 tablet, 1 Refills, Maintenance, 02/22/20 11:25:00 EST, [facility], Partial fill upon patient request if theprescription is for a schedule II opioid drug., 174... Start Date: 02/22/20 Status: Ordered ibuprofen 400 mg oral tablet 400 mg, 1, tablet, By Mouth, Every 4 hours, PRN, # 60 tablet, Refills 0, Tot. Refills 0, Maintenance, for pain, 12/02/19 11:42:00 EDT, Route to Pharmacy Electronically, [facility], 174.5, cm, 03/24/19 16:27:00 EST, Height Start Date: 12/02/19 Status: Ordered lidocaine 4% topical solution See Instructions, as needed for pain in L shoulder, # 1 each, 0 Refills, Maintenance, 12/02/19 11:43:00 EDT, [facility] [place], as needed for pain in L shoulder, [...]
--- OUTSIDE RECORDS SUMMARY | 2022-12-06 14:45 | XMS_ITS | Continuity of Care Document ---
Author Name Unknown Organization [facility] Address [address] [place] [id number]- Care Team Providers Care Welfare Project Manager Name Role Phone Misa Kincaid NP Primary Care Physician [place] [facility] 12/02/19 - 01/01/20 [facility]/[address] [address]- Allergies, Adverse Reactions, Alerts No Known Medication [...] 0 Refills, Maintenance, 12/05/19 11:20:00 EDT, Gel, [facility], 174.5, cm, 12/05/19 10:29:00 EDT, Height Start Date: 12/05/19 Status: Ordered ibuprofen 400 mg oral tablet 400 mg, 1, tablet, By Mouth, Every 4 hours, PRN, # 60 tablet, Refills 0, Tot. Refills 0, Maintenance, for pain, 12/02/19 11:42:00 EDT, Route to Pharmacy Electronically, [facility], 174.5, cm, 03/24/19 16:27:00 EST, Height Start Date: 12/02/19 Status: Ordered lidocaine 4% topical solution See Instructions, as needed for pain in L shoulder, # 1 each, 0 Refills, Maintenance, 12/02/19 11:43:00 EDT, [facility], as needed for pain in L shoulder, [...]
--- OUTSIDE RECORDS SUMMARY | 2022-12-06 14:45 | XMS_ITS | Continuity of Care Document ---
Author Name Unknown Organization [facility] Address [address] [place] [address]- Care Team Providers Care Tactical Response Group Officer Name Role Phone Samantha WREN, Sameera Campoverde Primary Care Physici an Encounter [facility] [place] R [id number] Date(s): 10/10/21 - 11/09/21 [facility] [place] [address]- Attending Physician: Tayla Raza Admitting Physician: AdmtrTayla [...] EDT, Tablet, [facility], Partial fill upon patient request if the prescription is for a schedule II opioid drug., 174.5, cm,... Start Date: 12/26/20 Status: Ordered escitalopram 10 mg oral tablet 1 tablet = 10 mg, By Mouth, Daily, take 1/2 pill for 2 weeks, then increase to one pill daily, # 30tablet, 5 Refills, Maintenance, 10/10/21 10:43:00 EDT, Tablet, [facility], Partial fill upon patient request if the prescription is... Start Date: 10/10/21 Status: Ordered famotidine 40 mg oral tablet 1 tablet = 40 mg, By Mouth, 2 times a day, PRN Dyspepsia, gambian, # 20 tablet, 1 Refills, Maintenance, 02/22/20 11:25:00 EST, [facility], Partial fill upon patient request [...] 1 Refills, Maintenance, 10/10/21 11:08:00 EDT, Tablet, [facility], Partial fill upon patient request if the prescription i... Start Date: 10/10/21 Status: Ordered Lubricant Eye Drops ophthalmic solution 1 drops, Eyes, Both, 2 times a day, PRN for dry eyes, # 30 mL, 11 Refills, Maintenance, 12/26/20 16:07:00 EDT, Solution, [facility], Partial fill upon patient request if the prescription is for a schedule II opioid drug., 1 drops E... Start Date: 12/26/20 Status: Ordered metFORMIN 500 mg oral tablet 1 tablet = 500 mg, By Mouth, Daily, with evening meal for type 2 diabetes, # 90 tablet, 1 Refills, Maintenance, 10/29/21 13:27:00 EDT, Tablet, [facility], Partial fill upon patient request [...] Personnel Name: Samantha WREN, Sameera Campoverde Address: [address] [place] [address]
--- OUTSIDE RECORDS SUMMARY | 2022-12-06 14:45 | XMS_ITS | Continuity of Care Document ---
Author Name Unknown Organization [facility] Address [address] [place] [address]- Care Team Providers Care Animal Care Provider Name Role Phone Codi WREN, Misa Cleary Primary Care Physician Encounter [facility] [place] Date(s): 01/05/20 - 02/04/20 [facility]/[address] [address]- Allergies, Adverse Reactions, Alerts No Known Medication [...] 0 Refills, Maintenance, 12/05/19 11:20:00 EDT, Gel, [facility], 174.5, cm, 12/05/19 10:29:00 EDT, Height Start Date: 12/05/19 Status: Ordered ibuprofen 400 mg oral tablet 400 mg, 1, tablet, By Mouth, Every 4 hours, PRN, # 60 tablet, Refills 0, Tot. Refills 0, Maintenance, for pain, 12/02/19 11:42:00 EDT, Route to Pharmacy Electronically, [facility], 174.5, cm, 03/24/19 16:27:00 EST, Height Start Date: 12/02/19 Status: Ordered lidocaine 4% topical solution See Instructions, as needed for pain in L shoulder, # 1 each, 0 Refills, Maintenance, 12/02/19 11:43:00 EDT, [facility], as needed for pain in L shoulder, [...]
--- OUTSIDE RECORDS SUMMARY | 2022-12-06 14:45 | XMS_ITS | Continuity of Care Document ---
Author Name Unknown Organization [facility] Address [address] [place] [address]- Care Team Providers Care Technical Director Name Role Phone Misa Kincaid NP Primary Care Physician Encounter [facility] Date(s): 10/05/19 - 11/04/19 [facility]/[address] [address]- [facility] Allergies, Adverse Reactions, Alerts No Known [...]
--- OUTSIDE RECORDS SUMMARY | 2022-12-06 14:45 | XMS_ITS | Continuity of Care Document ---
Author Name Unknown Organization [facility] Address Unknown Care Team Providers Care Formal Service Waiter Name Role Phone Samantha WREN, Sameera Campoverde Primary Care Physici an [id number] Date(s): 05/09/21 - 06/08/21 [facility] Allergies, Adverse Reactions, Alerts No [...] 11 Refills, Maintenance, 12/26/20 16:01:00 EDT, Tablet, [facility], Partial fill upon patient request if the prescription is for a schedule II opioid drug., 174.5, cm,... Start Date: 12/26/20 Status: Ordered famotidine 40 mg oral tablet 1 tablet = 40 mg, By Mouth, 2 times a day, PRN Dyspepsia, lao, # 20 tablet, 1 Refills, Maintenance, 02/22/20 11:25:00 EST, [facility], Partial fill upon patient request if theprescription is for a schedule II opioid drug., 174... Start Date: 02/22/20 Status: Ordered Lubricant Eye Drops ophthalmic solution 1 drops, Eyes, Both, 2 times a day, PRN for dry eyes, # 30 mL, 11 Refills, Maintenance, 12/26/20 16:07:00 EDT, Solution, [facility], Partial fill upon patient request if [...]
--- OUTSIDE RECORDS SUMMARY | 2022-12-06 14:45 | XMS_ITS | Continuity of Care Document ---
Author Name Unknown Organization [facility] Address Unknown Care Team Providers Care Radiologic Technology Teacher Name Role Phone Samantha WREN, Sameera Campoverde Primary Care Physici an Encounter [facility] [place] Date(s): 09/06/21 - 10/06/21 [facility] Allergies, Adverse Reactions, Alerts No Known [...] Refills, Maintenance, 12/26/20 16:01:00 EDT, Tablet, [facility], Partial fill upon patient request if the prescription is for a schedule II opioid drug., 174.5, cm,... Start Date: 12/26/20 Status: Ordered famotidine 40 mg oral tablet 1 tablet = 40 mg, By Mouth, 2 times a day, PRN Dyspepsia, serbian, # 20 tablet, 1 Refills, Maintenance, 02/22/20 11:25:00 EST, [facility], Partial fill upon patient request if [...] 1 Refills, Maintenance, 07/03/21 18:00:00 EDT, Tablet, [facility], Partial fill upon patient request if the prescription i... Start Date: 07/03/21 Status: Ordered Lubricant Eye Drops ophthalmic solution 1 drops, Eyes, Both, 2 times a day, PRN for dry eyes, # 30 mL, 11 Refills, Maintenance, 12/26/20 16:07:00 EDT, Solution, [facility], Partial fill upon patient request if the prescription is for a schedule II opioid drug., 1 drops E... Start Date: 12/26/20 Status: Ordered metFORMIN 500 mg oral tablet 1 tablet = 500 mg, By Mouth, Daily, with evening meal for type 2 diabetes, # 90 tablet, 1 Refills, Maintenance, 08/01/21 10:50:00 EDT, Tablet, [facility], Partial fill upon patient request if [...]
--- OUTSIDE RECORDS SUMMARY | 2022-12-06 14:45 | XMS_ITS | Continuity of Care Document ---
Author Name Unknown Organization [facility] Address [address] [place] [address]- Care Team Providers Care Guard Lieutenant Name Role Phone Codi WREN, Misa Cleary Primary Care Physician [place] [facility] [place](s): 07/20/19 - 07/27/19 [facility]/[address] [address]- [facility] Encounter Diagnosis Suspected 2019-nCoV infection(Discharge Diagnosis) - 07/20/19 Attending Physician: Petros Story MD, I Allergies, Adverse Reactions, Alerts No Known Medication [...] feb 2014, dx: TIA vs complex migraine. Diagnosis Diagnosis Type Effective Dates Health Status Cl inical Service Informant Suspected 2019-nCoV infection Discharge Diagnosis 07/20/19 Social History Social History Type Response Smoking Status Former smoker; Tobac co user in household: No entered on: 09/03/17 Sex
--- OUTSIDE RECORDS SUMMARY | 2022-12-06 14:45 | XMS_ITS | Continuity of Care Document ---
Author Name Unknown Organization [facility] Address [address] [place], [place] [id number]- Care Team Providers Care Community Association Manager Name Role Phone Samantha WREN, Sameera Campoverde Primary Care Physici an Encounter [facility] [place] Date(s): 09/23/21 - 10/23/21 [facility] [address]- [place] Allergies, Adverse Reactions, Alerts No Known [...] 11 Refills, Maintenance, 12/26/20 16:01:00 EDT, Tablet, [facility], Partial fill upon patient request if the prescription is for a schedule II opioid drug., 174.5, cm,... Start Date: 12/26/20 Status: Ordered escitalopram 10 mg oral tablet 1 tablet = 10 mg, By Mouth, Daily, take 1/2 pill for 2 weeks, then increase to one pill daily, # 30tablet, 5 Refills, Maintenance, 10/10/21 10:43:00 EDT, Tablet, [facility], Partial fill upon patient request if the prescription is... Start Date: 10/10/21 Status: Ordered famotidine 40 mg oral tablet 1 tablet = 40 mg, By Mouth, 2 times a day, PRN Dyspepsia, beninese, # 20 tablet, 1 Refills, Maintenance, 02/22/20 11:25:00 EST, [facility], Partial fill upon patient request if [...] 1 Refills, Maintenance, 10/10/21 11:08:00 EDT, Tablet, [facility], Partial fill upon patient request if the prescription i... Start Date: 10/10/21 Status: Ordered Lubricant Eye Drops ophthalmic solution 1 drops, Eyes, Both, 2 times a day, PRN for dry eyes, # 30 mL, 11 Refills, Maintenance, 12/26/20 16:07:00 EDT, Solution, [facility], Partial fill upon patient request if the prescription is for a schedule II opioid drug., 1 drops E... Start Date: 12/26/20 Status: Ordered metFORMIN 500 mg oral tablet 1 tablet = 500 mg, By Mouth, Daily, with evening meal for type 2 diabetes, # 90 tablet, 1 Refills, Maintenance, 08/01/21 10:50:00 EDT, Tablet, [facility], Partial fill upon patient request if [...] Personnel Name: Samantha WREN, Sameera Campoverde Address: [address] [place] [address]
[2022-12-06] MEDS: Diphth,Pertus(ACell),Tet Adult 0.5 ML SYRINGE IM (15:17)
[2022-12-06] MEDS: Lidocaine HCl 1 % MPF 5 ML VIAL 10 ML INFILTRATI (16:24)
[2022-12-06] MEDS: Ibuprofen 600 MG TABLET PO (17:28)
[2022-12-06] MEDS: Acetaminophen 325 MG TABLET 975 MG PO (17:28)
== END 2022-12-06 17:32 | disposition home or self-care (01) ==
PROVIDERS: Emergency Provider Emergency Medicine
DX: S61.313A Laceration without foreign body of left middle finger with damage to nail, initial encounter (principal); W26.0XXA Contact with knife, initial encounter; Y93.9 Activity, unspecified; Y92.9 Unspecified place or not applicable; Y99.9 Unspecified external cause status; Z23 Encounter for immunization
CPT/HCPCS: 12001; 73120; 90471; 90715; 99283; 99284